=== PATIENT | female | born 1950 | race Caucasian/White ===

== ENCOUNTER 2017-08-05 11:20 | Inpatient (IN) | payer MEDICARE, BC ==
[~2017-08-05] VITALS: Ht 172.7 cm; Wt 82.2 kg
[~2017-08-05 11:20] MED LIST: MULTTAB67 PO; ZOVI5OIN TOPICAL
[2017-08-05 11:29] VITALS: BP 136/66; PULSE 70; RESP 18; TEMP 97.9; O2SAT 97
[2017-08-05] MEDS ORDERED: ONDANSETRON HCL 4 MG/2 ML VIAL IVP ONE ×2 (11:30)
[2017-08-05] MEDS ORDERED: HYDROmorphone HCL PF 1 MG/ML VIAL IVS ONE ×2 (11:30)
[2017-08-05] MEDS ORDERED: SODIUM CHLORIDE 0.9% FLUSH 10 ML FLUSH IVF PRN ×2 (11:30)
--- NOTE | 2017-08-05 11:33 | PD ---
HPI Chief Complaint: Fall Time Seen by Provider: 11:24 Travel History International Travel<30 days: No Contact w/Intl Traveler<30days: No Traveled to known affect area: No History of Present Illness HPI 67-year-old normally healthy female presents the emergency department via EMS status post trip and fall with complaints of right hip pain and shortening. Patient was helping her , who was on the roof, when the patient was walking backwards trying to see on the roof, when she tripped and fell over a curbing causing her accident. Patient was not on the ladder. Patient normally takes no medications and is very healthy and active. Patient states pain in the right hip and proximal thigh. Patient denies numbness or tingling and is able to move right foot without difficulty. She denies hitting her head or loss of consciousness. No neck pain. Patient received 8 mg of morphine en route in the ambulance with some improvement of her pain. Pain is currently 5 out of 10 at rest. Patient has no known drug allergies. Patient last had yogurt at approximately 8:00 this morning. PFSH Past Medical History Cancer: No Cardiovascular Problems: No Diabetes: No Endocrine: No Genitourinary: No Hepatitis: Yes (hep c) Hiatal Hernia: No Immune Disorder: No Musculoskeletal: No Neurologic: No Psychiatric: Yes (depressions) Reproductive: No Respiratory: No Thyroid Disease: No Past Surgical History Endocrine Surgery: No Social History Alcohol Use: No Tobacco Use: No Substance Use: No Allergies-Medications (Allergen,Severity, Reaction): Coded Allergies: No Known Allergies (Unverified , 08/10/16) Reported Meds & Prescriptions Reported Meds & Active Scripts Active Enoxaparin Inj (Enoxaparin Sodium) 40 Mg/0.4 Ml Syr 40 Mg SQ DAILY Start Aspirin after Lovenox is completed. Ecotrin Regular Strength (Aspirin) 325 Mg Tabdr 325 Mg PO DAILY Start Aspirin after Lovenox is completed. [place] (Hydrocodone-Acetaminophen) 5-325 mg Tab 1-2 Tab PO Q4H PRN Reported Aspirin 81 Mg Chew 81 Mg CHEW DAILY Review of Systems Except as stated in HPI: all other systems reviewed are Neg General / Constitutional: No: Fever Eyes: No: Visual changes HENT: No: Headaches Cardiovascular: No: Chest Pain or Discomfort Respiratory: No: Shortness of Breath Gastrointestinal: No: Abdominal Pain Genitourinary: No: Dysuria Musculoskeletal: Positive: Arthralgias, Limited ROM, Pain Skin: No Rash Neurologic: No: Weakness Psychiatric: No: Depression Endocrine: No: Polydipsia Hematologic/Lymphatic: No: Easy Bruising Physical Exam Narrative GENERAL: Patient appears in moderate distress. SKIN: Warm and dry. Normal color. Normal turgor. No abrasion or ecchymosis or open wound. HEAD: Atraumatic. Normocephalic. Nontender. EYES: Pupils equal and round. No scleral icterus. No injection or drainage. ENT: No nasal bleeding or discharge. Mucous membranes pink and moist. Pharynx is clear. Airway is patent. NECK: Trachea midline. No bony tenderness or step-off. Range of motion is full and supple. CARDIOVASCULAR: Regular rate and rhythm. No murmurs gallops or rubs. RESPIRATORY: No accessory muscle use. Clear to auscultation. Breath sounds equal bilaterally. GASTROINTESTINAL: Abdomen soft, non-tender, nondistended. Hepatic and splenic margins not palpable. MUSCULOSKELETAL: Extremities without clubbing, cyanosis, or edema. Right lower extremity is held in external rotation and appears somewhat shortened. Further exam is limited secondary to patient's pain. Capillary refill is less than 2 seconds distally, and patient has normal sensation and motion of the toes in the right foot. NEUROLOGICAL: Awake and alert. No obvious cranial nerve deficits. Motor grossly within normal limits. Normal speech. PSYCHIATRIC: Appropriate mood and affect; insight and judgment normal. Data Data Last Documented VS Vital Signs Date Time Temp Pulse Resp B/P (MAP) Pulse Ox O2 Delivery O2 Flow Rate FiO2 08/05/17 11:40 70 18 97 Room Air 08/05/17 11:40 97.9 136/66 (89) Orders Orders Electrocardiogram (08/05/17 11:29) Complete Blood Count With Diff (08/05/17 11:29) Comprehensive Metabolic Panel (08/05/17 11:29) Prothrombin Time / Inr (Pt) (08/05/17 11:29) Act Partial Throm Time (Ptt) (08/05/17 11:29) Urinalysis - C+S If Indicated (08/05/17 11:29) Type And Screen (08/05/17 11:29) Chest, Single Ap (08/05/17 11:29) Femur (Ap & Lat/2vws) (08/05/17 11:29) Hip, Uni(Ap&Lat) W Ap Pelvis (08/05/17 11:29) Iv Access Insert/Monitor (08/05/17 11:29) Urinary Catheter Insert/Apply (08/05/17 11:29) Oximetry (08/05/17 11:29) Ecg Monitoring (08/05/17 11:29) Ondansetron Inj (Zofran Inj) (08/05/17 11:30) Sodium Chloride 0.9% Flush (Ns Flush) (08/05/17 11:30) Hydromorphone Pf Inj (Dilaudid Pf Inj) (08/05/17 11:30) Admit Order (Ed Use Only) (08/05/17 13:00) Labs Laboratory Tests Test 08/05/17 11:45 08/05/17 12:37 White Blood Count 10.1 TH/MM3 Red Blood Count 4.31 MIL/MM3 Hemoglobin 13.6 GM/DL Hematocrit 40.9 % Mean Corpuscular Volume 94.9 FL Mean Corpuscular Hemoglobin 31.5 PG Mean Corpuscular Hemoglobin Concent 33.2 % Red Cell Distribution Width 12.3 % Platelet Count 189 TH/MM3 Mean Platelet Volume 8.2 FL Neutrophils (%) (Auto) 70.7 % Lymphocytes (%) (Auto) 22.6 % Monocytes (%) (Auto) 5.3 % Eosinophils (%) (Auto) 1.1 % Basophils (%) (Auto) 0.3 % Neutrophils # (Auto) 7.2 TH/MM3 Lymphocytes # (Auto) 2.3 TH/MM3 Monocytes # (Auto) 0.5 TH/MM3 Eosinophils # (Auto) 0.1 TH/MM3 Basophils # (Auto) 0.0 TH/MM3 CBC Comment DIFF FINAL Differential Comment Prothrombin Time 10.9 SEC Prothromb Time International Ratio 1.0 RATIO Activated Partial Thromboplast Time 22.9 SEC Blood Urea Nitrogen 16 MG/DL Creatinine 0.79 MG/DL Random Glucose 146 MG/DL Total Protein 7.6 GM/DL Albumin 3.8 GM/DL Calcium Level 9.1 MG/DL Alkaline Phosphatase 64 U/L Aspartate Amino Transf (AST/SGOT) 21 U/L Alanine Aminotransferase (ALT/SGPT) 22 U/L Total Bilirubin 0.4 MG/DL Sodium Level 139 MEQ/L Potassium Level 3.8 MEQ/L Chloride Level 104 MEQ/L Carbon Dioxide Level 22.1 MEQ/L Anion Gap 13 MEQ/L Estimat Glomerular Filtration Rate 73 ML/MIN Urine Color YELLOW Urine Turbidity CLEAR Urine pH 6.0 Urine Specific [place] 1.016 Urine Protein NEG mg/dL Urine Glucose (UA) NEG mg/dL Urine Ketones 40 mg/dL Urine Occult Blood TRACE Urine Nitrite NEG Urine Bilirubin NEG Urine Urobilinogen LESS THAN 2.0 MG/DL Urine Leukocyte Esterase MOD Urine RBC 3 /hpf Urine WBC 5 /hpf Urine Squamous Epithelial Cells <1 /hpf Urine Mucus FEW /lpf Microscopic Urinalysis Comment CATH-CULT NOT IND MDM Medical Decision Making Medical Screen Exam Complete: Yes Emergency Medical Condition: Yes Differential Diagnosis Trip and fall. Right hip pain. Pelvic fracture. Femur fracture. Hip fracture. Narrative Course Patient is medically stable at time of exam. Chest x-ray, x-rays of the right hip and pelvis, and right femur ordered. Labs ordered including CBC, CMP, PT PTT and INR, type and screen and urinalysis. Drew catheter is ordered. Patient is given 1 mg of hydromorphone IV. Patient given 4 mg Zofran IV. Labs are stable EKG shows normal sinus rhythm without ST changes. Chest x-ray is unremarkable. X-ray shows a right femoral neck fracture of the right hip. Call was placed to the hospitalist for admission. Call also placed to Dr. Borges the orthopedic on-call Patient was discussed with Dr. Borges, who would like the patient admitted for kept nothing by mouth, as he may take her to surgery today. Diagnosis Primary Impression: Closed right hip fracture Qualified Codes: S72.001A - Fracture of unspecified part of neck of right femur, initial encounter for closed fracture Admitting Information Admitting Physician Requests: Admit Scripts Enoxaparin Inj (Enoxaparin Inj) 40 Mg/0.4 Ml Syr 40 MG SQ DAILY for Blood Clot Prevention, #10 SYRINGE 0 Refills Start Aspirin after Lovenox is completed. Prov: Chaim Maynard MD 08/05/[address] (Ecotrin Regular Strength) 325 Mg Tabdr 325 MG PO DAILY for Prevent Blood Clot, #30 TAB 0 Refills Start Aspirin after Lovenox is completed. Prov: Chaim Maynard MD 08/05/17 Hydrocodone-Acetaminophen ([place]) 5-325 mg Tab 1-2 TAB PO Q4H Y for PAIN, #60 TAB 0 Refills Prov: Chaim Maynard MD 08/05/17 Condition: Stable Adelso Steven Aug 05, 2017 11:33
[2017-08-05 11:39] VITALS: PULSE 70; RESP 18; O2SAT 97
[2017-08-05 11:40] VITALS: BP 136/66; PULSE 70; RESP 18; TEMP 97.9; O2SAT 99
[2017-08-05] MEDS ORDERED: ASPI81CH CHEW ×2 (11:44)
[2017-08-05 12:06] LABS: AUTOMATED NEUTROPHIL # 7.2 TH/MM3 (1.8-7.7); BASOPHIL % 0.3 % (0.0-2.0); EOSINOPHIL # 0.1 TH/MM3 (0-0.4); EOSINOPHIL % 1.1 % (0.0-4.0); HEMATOCRIT 40.9 % (35.0-46.0); HEMOGLOBIN 13.6 GM/DL (11.6-15.3); LYMPH % 22.6 % (9.0-44.0); LYMPHOCYTE # 2.3 TH/MM3 (1.0-4.8); MEAN CELL VOLUME 94.9 FL (80.0-100.0); MEAN CORPUSCULAR HEMOGLOBIN 31.5 PG (27.0-34.0); MEAN CORPUSCULAR HGB CONC 33.2 % (32.0-36.0); MEAN PLATELET VOLUME 8.2 FL (7.0-11.0); MONO % 5.3 % (0.0-8.0); MONOCYTE # 0.5 TH/MM3 (0-0.9); NEUT % 70.7 % (16.0-70.0); PLATELET COUNT 189 TH/MM3 (150-450); RED BLOOD COUNT 4.31 MIL/MM3 (4.00-5.30); RED CELL DISTRIBUTION WIDTH 12.3 % (11.6-17.2); WHITE BLOOD COUNT 10.1 TH/MM3 (4.0-11.0)
[2017-08-05 12:13] LABS: PROTHROMBIN TIME - PATIENT 10.9 SEC (9.8-11.6)
--- NOTE | 2017-08-05 12:20 | RADRPT ---
EXAM DATE/TIME: 08/05/2017 11:48 [facility] COMPARISON: No previous studies available for comparison. INDICATIONS : Trauma. Fall today. MEDICAL HISTORY : None. SURGICAL HISTORY : None. ENCOUNTER: Initial ACUITY: 1 day PAIN SCORE: 0/10 LOCATION: Bilateral chest FINDINGS: No significant effusion or pneumothorax. No apical cap. Lungs are clear. Cardiomegaly some contours a re within normal limits. Osseous structures are grossly intact. CONCLUSION: 1. Negative portable chest status post trauma. Gerardo Booker MD on August 05, 2017 at 12:18 Board Certified Radiologist. This report was verified electronically.
--- NOTE | 2017-08-05 12:24 | RADRPT ---
EXAM DATE/TIME: 08/05/2017 11:52 [facility] COMPARISON: No previous studies available for comparison. INDICATIONS : Trauma. Fall today. Pain in right hip and femur. MEDICAL HISTORY : None. SURGICAL HISTORY : None. ENCOUNTER: Initial ACUITY: 1 day PAIN SCORE: 10/10 LOCATION: Right FINDINGS: Slightly comminuted intertrochanteric fracture of the right femur with slight angulation. Remaining s tructures are intact. Serpiginous sclerotic medullary lesion in the distal femur likely reflects a sm all bone infarct. Hip and knee joints are grossly maintained. Soft tissues are grossly unremarkable. CONCLUSION: 1. Mildly comminuted intertrochanteric right femoral fracture. Gerardo Booker MD on August 05, 2017 at 12:20 Board Certified Radiologist. This report was verified electronically.
--- NOTE | 2017-08-05 12:37 | RADRPT ---
EXAM DATE/TIME: 08/05/2017 12:04 [facility] COMPARISON: No previous studies available for comparison. INDICATIONS : Trauma. Fall today. Pain in right hip and femur. MEDICAL HISTORY : None. SURGICAL HISTORY : None. ENCOUNTER: Initial ACUITY: 1 day PAIN SCORE: 10/10 LOCATION: Right pelvis FINDINGS: Mildly comminuted right intertrochanteric fracture. Well marginated 2.7 sclerotic lesion involving th e right ilium near the SI joint. No periosteal reaction. Remaining osseous structures are intact. Kristy nt spaces are maintained. Soft tissues are unremarkable. CONCLUSION: 1. Mildly comminuted right intertrochanteric fracture. 2. 2.8 cm right iliac sclerotic lesion demonstrating features consistent with low biological activity . Further evaluation may be performed with bone scan or MRI exam as warranted. Gerardo Booker MD on August 05, 2017 at 12:29 Board Certified Radiologist. This report was verified electronically.
[2017-08-05 12:41] LABS: ALBUMIN 3.8 GM/DL (3.4-5.0); AST (GOT) 21 U/L (15-37); BICARBONATE 22.1 MEQ/L (21.0-32.0); BLOOD UREA NITROGEN 16 MG/DL (7-18); CALCIUM 9.1 MG/DL (8.5-10.1); CHLORIDE 104 MEQ/L (98-107); CREATININE 0.79 MG/DL (0.50-1.00); GLOMERULAR FILTRATION RATE 73 ML/MIN (>89); GLUCOSE,RANDOM 146 MG/DL (74-106); SODIUM (NA) 139 MEQ/L (136-145)
[2017-08-05 12:42] LABS: ALT (GPT) 22 U/L (10-53)
[2017-08-05 12:45] LABS: ALKALINE PHOSPHATASE 64 U/L (45-117); TOTAL BILIRUBIN ADULT 0.4 MG/DL (0.2-1.0); TOTAL PROTEIN 7.6 GM/DL (6.4-8.2)
[2017-08-05 13:06] LABS: BILIRUBIN, URINE NEG (NEG); BLOOD, URINE TRACE (NEG); GLUCOSE,URINE NEG (NEG); KETONE, URINE 40 mg/dL (NEG); MUCUS URINE FEW /lpf (OCC); NITRITE,URINE NEG (NEG); SQUAMOUS EPITHELIAL CELL URINE <1 /hpf (0-5); URINE COLOR YELLOW (YELLW/STRAW); URINE LEUKOCYTE ESTERASE MOD (NEG)
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
[2017-08-05] MEDS ORDERED: SODIUM CHLORIDE 0.9% FLUSH 10 ML FLUSH IV FLUSH PRN ×2 (14:00)
[2017-08-05] MEDS ORDERED: NALOXONE HCL 0.4 MG/ML AMP IV PUSH PRN ×4 (14:00→17:15)
[2017-08-05] MEDS ORDERED: MAGNESIUM HYDROXIDE SUSP 30 ML CUP PO PRN ×4 (14:00→17:15)
[2017-08-05] MEDS ORDERED: SENNOSIDES 8.6 MG TAB PO PRN ×2 (14:00)
[2017-08-05] MEDS ORDERED: ACETAMINOPHEN/HYDROcodone 325 MG/5 MG TAB PO PRN ×6 (14:00→17:15)
[2017-08-05] MEDS ORDERED: ACETAMINOPHEN 325 MG TAB PO PRN ×2 (14:00)
[2017-08-05] MEDS ORDERED: ACETAMINOPHEN/HYDROcodone 325 MG/7.5 MG TAB PO PRN ×2 (14:00)
[2017-08-05] MEDS ORDERED: LACTULOSE SYRUP 20 GM/30 ML CUP PO PRN ×2 (14:00)
[2017-08-05] MEDS ORDERED: ONDANSETRON HCL 4 MG/2 ML VIAL IVP PRN ×4 (14:00→17:15)
[2017-08-05] MEDS ORDERED: MORPHINE SULFATE 4 MG/ML INJ IV PUSH PRN ×4 (14:00→17:15)
[2017-08-05] MEDS ORDERED: BISACODYL 10 MG SUPP RECTAL PRN ×4 (14:00→17:15)
[2017-08-05 14:25] VITALS: O2SAT 99
[2017-08-05] MEDS: SODIUM CHLOR 0.9% 1000 ML INJ 1,000 ML IV SCH ×6 (14:26→21:42)
[2017-08-05 15:00] VITALS: BP 117/61; PULSE 67; RESP 16; O2SAT 99
[2017-08-05] MEDS ORDERED: ACETAMINOPHEN 1000 MG/100 ML 100 ML IV ONE ×2 (15:09)
[2017-08-05] MEDS ORDERED: GENTAMICIN SULFATE 80 MG/2 ML VIAL ONE ×2 (15:26)
[2017-08-05] MEDS ORDERED: VANCOMYCIN HCL 1000 MG VIAL ONE ×2 (15:27)
[2017-08-05] MEDS ORDERED: ceFAZolin INJ 1,000 MG VIAL ONE ×2 (15:27)
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
--- NOTE | 2017-08-05 17:06 | PD.OP ---
cc: Chaim Maynard MD Operative Report Date of Surgery: Aug 05, 2017 Preoperative Diagnosis: Right hip intertrochanteric fracture Postoperative Diagnosis: Same Procedure: Right hip treatment of intertrochanteric fracture with intramedullary nail Anesthesia: Gen. Surgeon: Chaim Maynard Mortgage Clerk(s): LUIS FERNANDO Cosme The surgical procedure was assisted by my Advanced Registered Nurse Practitioner. My IRONWORKER WIRE FENCE ERECTOR presence was necessary throughout this case for the manipulation and positioning of the surgical extremity. My IRONWORKER WIRE FENCE ERECTOR was assisting me throughout the duration of this procedure. The skill set of an Advance Registered Nurse Practitioner was medically necessary to complete this procedure. During the surgical case, the rn surgical pcu was working at the back table and the Advance Registered Nurse Practitioner was directly assisting me. Operation and Findings: Estimated blood loss: 150 cc Implants: Synthes short trochanteric nail, size: 11, 130 The patient received intravenous vancomycin and Ancef. After the appropriate anesthesia was administered, and the patient was transferred to the fracture table. The fracture was anatomically reduced under fluoroscopic imaging. The hip was prepped and draped in usual sterile fashion. We made incision just proximal to the tip of the greater trochanter. We dissected down through the deep fascia. We used a threaded guidewire at the tip of the greater trochanter which was placed down to the metaphyseal region on both the AP and lateral views. We reamed proximally. Using fluoroscopic analysis we templated the appropriate size for the short nail. This nail was then placed into position under fluoroscopic guidance. We made incision laterally based on the position of the associated jig. We then placed a threaded guidewire into the center, center of the femoral head. The appropriate length for the helical blade was measured. We drilled laterally and then step reamed the femoral neck and femoral head region. The helical blade was placed into position. We then tightened the proximal set screw, which was followed by releasing one turn off of the screw to allow for compression. Traction was released from the leg and then manual compression was performed. There was an excellent endpoint. The nail was secured distally with a single screw off of the jig using fluoroscopic guidance. We took final fluoroscopic imaging which revealed that the fracture was in very good position. The hardware was in good position as well. The wounds were thoroughly irrigated and then closed with a 0 Vicryl followed by 2-0 Vicryl and danuta. The postoperative plan is to start full weightbearing. Additionally, we will initiate postoperative antibiotics for 24 hours along with DVT prophylaxis consisting of early mobilization, SCDs, compression stockings, and Lovenox followed by aspirin. Chaim Maynard MD Aug 05, 2017 17:06
--- NOTE | 2017-08-05 17:06 | PD.OP ---
cc: Chaim Maynard MD Operative Report Date of Surgery: Aug 05, 2017 Preoperative Diagnosis: Right hip intertrochanteric fracture Postoperative Diagnosis: Same Procedure: Right hip treatment of intertrochanteric fracture with intramedullary nail Anesthesia: Gen. Surgeon: Chaim Maynard Spinner Continuous(s): LUIS FERNANDO Cosme The surgical procedure was assisted by my Advanced Registered Nurse Practitioner. My AUTOMOBILE ENGINE ASSEMBLER presence was necessary throughout this case for the manipulation and positioning of the surgical extremity. My AUTOMOBILE ENGINE ASSEMBLER was assisting me throughout the duration of this procedure. The skill set of an Advance Registered Nurse Practitioner was medically necessary to complete this procedure. During the surgical case, the surgical forceps fabricator was working at the back table and the Advance Registered Nurse Practitioner was directly assisting me. Operation and Findings: Estimated blood loss: 150 cc Implants: Synthes short trochanteric nail, size: 11, 130 The patient received intravenous vancomycin and Ancef. After the appropriate anesthesia was administered, and the patient was transferred to the fracture table. The fracture was anatomically reduced under fluoroscopic imaging. The hip was prepped and draped in usual sterile fashion. We made incision just proximal to the tip of the greater trochanter. We dissected down through the deep fascia. We used a threaded guidewire at the tip of the greater trochanter which was placed down to the metaphyseal region on both the AP and lateral views. We reamed proximally. Using fluoroscopic analysis we templated the appropriate size for the short nail. This nail was then placed into position under fluoroscopic guidance. We made incision laterally based on the position of the associated jig. We then placed a threaded guidewire into the center, center of the femoral head. The appropriate length for the helical blade was measured. We drilled laterally and then step reamed the femoral neck and femoral head region. The helical blade was placed into position. We then tightened the proximal set screw, which was followed by releasing one turn off of the screw to allow for compression. Traction was released from the leg and then manual compression was performed. There was an excellent endpoint. The nail was secured distally with a single screw off of the jig using fluoroscopic guidance. We took final fluoroscopic imaging which revealed that the fracture was in very good position. The hardware was in good position as well. The wounds were thoroughly irrigated and then closed with a 0 Vicryl followed by 2-0 Vicryl and danuta. The postoperative plan is to start full weightbearing. Additionally, we will initiate postoperative antibiotics for 24 hours along with DVT prophylaxis consisting of early mobilization, SCDs, compression stockings, and Lovenox followed by aspirin. Chaim Maynard MD Aug 05, 2017 17:06
--- NOTE | 2017-08-05 17:06 | PD.OP ---
cc: Chaim Maynard MD Operative Report Date of Surgery: Aug 05, 2017 Preoperative Diagnosis: Right hip intertrochanteric fracture Postoperative Diagnosis: Same Procedure: Right hip treatment of intertrochanteric fracture with intramedullary nail Anesthesia: Gen. Surgeon: Chaim Maynard Jewel Gauger(s): LUIS FERNANDO Cosme The surgical procedure was assisted by my Advanced Registered Nurse Practitioner. My AIR PURIFIER SERVICER presence was necessary throughout this case for the manipulation and positioning of the surgical extremity. My AIR PURIFIER SERVICER was assisting me throughout the duration of this procedure. The skill set of an Advance Registered Nurse Practitioner was medically necessary to complete this procedure. During the surgical case, the surgical aides teacher was working at the back table and the Advance Registered Nurse Practitioner was directly assisting me. Operation and Findings: Estimated blood loss: 150 cc Implants: Synthes short trochanteric nail, size: 11, 130 The patient received intravenous vancomycin and Ancef. After the appropriate anesthesia was administered, and the patient was transferred to the fracture table. The fracture was anatomically reduced under fluoroscopic imaging. The hip was prepped and draped in usual sterile fashion. We made incision just proximal to the tip of the greater trochanter. We dissected down through the deep fascia. We used a threaded guidewire at the tip of the greater trochanter which was placed down to the metaphyseal region on both the AP and lateral views. We reamed proximally. Using fluoroscopic analysis we templated the appropriate size for the short nail. This nail was then placed into position under fluoroscopic guidance. We made incision laterally based on the position of the associated jig. We then placed a threaded guidewire into the center, center of the femoral head. The appropriate length for the helical blade was measured. We drilled laterally and then step reamed the femoral neck and femoral head region. The helical blade was placed into position. We then tightened the proximal set screw, which was followed by releasing one turn off of the screw to allow for compression. Traction was released from the leg and then manual compression was performed. There was an excellent endpoint. The nail was secured distally with a single screw off of the jig using fluoroscopic guidance. We took final fluoroscopic imaging which revealed that the fracture was in very good position. The hardware was in good position as well. The wounds were thoroughly irrigated and then closed with a 0 Vicryl followed by 2-0 Vicryl and danuta. The postoperative plan is to start full weightbearing. Additionally, we will initiate postoperative antibiotics for 24 hours along with DVT prophylaxis consisting of early mobilization, SCDs, compression stockings, and Lovenox followed by aspirin. Chaim Maynard MD Aug 05, 2017 17:06
[2017-08-05] MEDS ORDERED: ASPI-146 PO ×2 (17:07)
[2017-08-05] MEDS ORDERED: ENOX40IN SQ ×2 (17:07)
[2017-08-05] MEDS ORDERED: NORC5TAB PO ×2 (17:07)
[2017-08-05] MEDS ORDERED: ZOLPIDEM TARTRATE 5 MG TAB PO PRN ×2 (17:15)
[2017-08-05] MEDS ORDERED: Post-op Orders (for Pharmacy) MISC XX ONE ×2 (17:15)
[2017-08-05] MEDS ORDERED: ALUMINUM/MAGNESIUM/SIMETH 30 ML CUP PO PRN ×2 (17:15)
[2017-08-05] MEDS ORDERED: diphenhydrAMINE HCL 50 MG/ML VIAL IV PUSH PRN ×2 (17:15)
[2017-08-05] MEDS ORDERED: SODIUM CHLORIDE 0.9% FLUSH 5 ML FLUSH IVF PRN ×2 (17:15)
[2017-08-05] MEDS ORDERED: *MEPERIDINE 25 MG INJ VIAL PERIprocedural Use ONLY ONE ×2 (17:56)
[2017-08-05] MEDS ORDERED: TRANEXAMIC ACID IV SCH ×4 (18:00)
[2017-08-05] MEDS ORDERED: SODIUM CHLORIDE 0.9% IV SCH ×4 (18:00)
[2017-08-05] MEDS ORDERED: *ONDANSETRON 4 MG VIAL PERIprocedural Use ONLY ONE ×2 (18:01)
[2017-08-05] MEDS ORDERED: DO NOT ADM ANY ANTICOAGULANT DRUGS PRN ×2 (18:30)
[2017-08-05 20:00] VITALS: BP 145/77; PULSE 73; RESP 18; TEMP 96.9; O2SAT 95
[2017-08-05] MEDS: SODIUM CHLORIDE 0.9% FLUSH 5 ML FLUSH IVF SCH ×2 (21:00)
[2017-08-05] MEDS: SODIUM CHLORIDE 0.9% FLUSH 10 ML FLUSH IV FLUSH SCH ×2 (21:22)
--- NOTE | 2017-08-05 21:53 | RADRPT ---
EXAM DATE/TIME: 08/05/2017 16:26 [facility] COMPARISON: HIP RIGHT (AP&LAT 2/3VWS) W AP PELVIS, August 05, 2017, 12:04. INDICATIONS : Hip fracture- ORIF. MEDICAL HISTORY : None. SURGICAL HISTORY : None. ENCOUNTER: Initial ACUITY: 1 day PAIN SCORE: Non-responsive. LOCATION: Right Hip. FINDINGS: 7 spot intraoperative fluoroscopic views of the right femur demonstrate antegrade intramedullary heraclio and femoral neck pin fixation across the trochanteric right proximal femur fracture with excellent al ignment. CONCLUSION: Operative fixation right proximal femur fracture. Rj Baez MD on August 05, 2017 at 21:50 Board Certified Radiologist. This report was verified electronically.
[2017-08-06] VITALS (7 sets, daily range): BP systolic 115–136; BP diastolic 54–68; PULSE 64–76; RESP 17–20; TEMP 97.1–99.7; O2SAT 96–100
[2017-08-06] MEDS: SODIUM CHLOR 0.9% 1000 ML INJ 1,000 ML IV SCH ×8 (03:01→19:55)
[2017-08-06 07:05] LABS: AUTOMATED NEUTROPHIL # 8.2 TH/MM3 (1.8-7.7); BASOPHIL % 0.3 % (0.0-2.0); EOSINOPHIL % 0.1 % (0.0-4.0); HEMATOCRIT 33.6 % (35.0-46.0); HEMOGLOBIN 11.5 GM/DL (11.6-15.3); LYMPH % 15.6 % (9.0-44.0); LYMPHOCYTE # 1.7 TH/MM3 (1.0-4.8); MEAN CELL VOLUME 93.4 FL (80.0-100.0); MEAN CORPUSCULAR HEMOGLOBIN 31.9 PG (27.0-34.0); MEAN CORPUSCULAR HGB CONC 34.2 % (32.0-36.0); MEAN PLATELET VOLUME 7.8 FL (7.0-11.0); MONOCYTE # 0.9 TH/MM3 (0-0.9); PLATELET COUNT 162 TH/MM3 (150-450); RED BLOOD COUNT 3.59 MIL/MM3 (4.00-5.30); RED CELL DISTRIBUTION WIDTH 12.5 % (11.6-17.2); WHITE BLOOD COUNT 10.8 TH/MM3 (4.0-11.0)
[2017-08-06 08:11] LABS: ALBUMIN 3.2 GM/DL (3.4-5.0); ALKALINE PHOSPHATASE 51 U/L (45-117); ALT (GPT) 19 U/L (10-53); AST (GOT) 19 U/L (15-37); BICARBONATE 24.5 MEQ/L (21.0-32.0); BLOOD UREA NITROGEN 9 MG/DL (7-18); CALCIUM 8.2 MG/DL (8.5-10.1); CHLORIDE 106 MEQ/L (98-107); CREATININE 0.57 MG/DL (0.50-1.00); GLOMERULAR FILTRATION RATE 106 ML/MIN (>89); GLUCOSE,RANDOM 107 MG/DL (74-106); SODIUM (NA) 140 MEQ/L (136-145); TOTAL BILIRUBIN ADULT 0.4 MG/DL (0.2-1.0); TOTAL PROTEIN 6.4 GM/DL (6.4-8.2)
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
[2017-08-06] MEDS ORDERED: HYDROmorphone HCL PF 0.5 MG/0.5 ML SYRINGE IV PUSH PRN ×2 (08:45)
[2017-08-06] MEDS ORDERED: oxyCODONE/ACETAMINOPHEN 5 MG/325 MG TAB PO PRN ×2 (08:45)
[2017-08-06] MEDS: SODIUM CHLORIDE 0.9% FLUSH 5 ML FLUSH IVF SCH ×4 (08:47→19:55)
[2017-08-06] MEDS: SODIUM CHLORIDE 0.9% FLUSH 10 ML FLUSH IV FLUSH SCH ×2 (08:47)
--- NOTE | 2017-08-06 11:21 | EKG ---
Date Performed: 08/05/2017 Time Performed: 11:36:30 PTAGE: 67 years EKG: Sinus rhythm POSSIBLE LEFT ATRIAL ENLARGEMENT BORDERLINE LEFT AXIS DEVIATION MODERATE INTRAVENTRICULAR CONDUCTION DELAY Left anterior fascicular block BORDERLINE ECG NO PREVIOUS TRACING DOCTOR: Miguel Vera Interpretating Date/Time 08/06/2017 11:19:46
[2017-08-06] MEDS: DOCUSATE SODIUM 50 MG/SENNA 8.6 MG TAB PO SCH ×4 (11:37→19:55)
[2017-08-06] MEDS: oxyCODONE/ACETAMINOPHEN 10 MG/325 MG TAB PO PRN ×6 (11:37→21:54)
[2017-08-06 13:54] LABS: HEMOGLOBIN A1C 6.1 % (4.3-6.0)
[2017-08-06] MEDS ORDERED: ENOXAPARIN SODIUM 40 MG/0.4 ML SYRINGE SQ SCH ×2 (16:00)
[2017-08-06] MEDS: MULTIVITAMINS/MINERALS THERAPEUTIC TAB PO SCH ×2 (19:55)
[2017-08-06] MEDS ORDERED: DOCUSATE SODIUM 100 MG CAP PO SCH ×2 (21:00)
[2017-08-07 00:38] VITALS: BP 110/57; PULSE 72; RESP 17; TEMP 98.4; O2SAT 96
[2017-08-07] MEDS: oxyCODONE/ACETAMINOPHEN 10 MG/325 MG TAB PO PRN ×6 (05:03→13:39)
[2017-08-07 07:25] LABS: HEMATOCRIT 33.4 % (35.0-46.0); HEMOGLOBIN 11.4 GM/DL (11.6-15.3); MEAN CELL VOLUME 93.7 FL (80.0-100.0); MEAN CORPUSCULAR HGB CONC 34.2 % (32.0-36.0); PLATELET COUNT 156 TH/MM3 (150-450); RED BLOOD COUNT 3.56 MIL/MM3 (4.00-5.30); RED CELL DISTRIBUTION WIDTH 12.7 % (11.6-17.2); WHITE BLOOD COUNT 8.2 TH/MM3 (4.0-11.0)
[2017-08-07 07:40] VITALS: BP 124/70; PULSE 73; RESP 17; TEMP 99.1; O2SAT 94
[2017-08-07] MEDS: MULTIVITAMINS/MINERALS THERAPEUTIC TAB PO SCH ×2 (08:35)
[2017-08-07] MEDS: DOCUSATE SODIUM 50 MG/SENNA 8.6 MG TAB PO SCH ×2 (08:35)
[2017-08-07] MEDS: SODIUM CHLORIDE 0.9% FLUSH 5 ML FLUSH IVF SCH ×2 (08:36)
[2017-08-07] MEDS: SODIUM CHLOR 0.9% 1000 ML INJ 1,000 ML IV SCH ×2 (09:01)
[2017-08-07 12:01] VITALS: BP 126/79; PULSE 77; RESP 17; TEMP 98.2; O2SAT 92
--- NOTE | 2017-08-07 12:14 | HHI.FPPN ---
Subjective Remarks Patient seen and examined at bedside. Pt stated her pain is improved. She did not take her pain medication yesterday before working with PT and was not able to do most of the exercises. No acute events overnight. Pt stated she is having a lot of difficulty moving around due to the hip pain and would prefer to continue to work with PT in rehab for a few days. No other complaints. Objective Vitals Vital Signs Date Time Temp Pulse Resp B/P (MAP) Pulse Ox O2 Delivery O2 Flow Rate FiO2 08/07/17 12:01 98.2 77 17 126/79 (95) 92 08/07/17 07:40 Nasal Cannula 3.00 08/07/17 07:40 99.1 73 17 124/70 (88) 94 08/07/17 00:38 98.4 72 17 110/57 (74) 96 08/06/17 20:36 98.6 76 17 120/61 (80) 96 08/06/17 20:22 Nasal Cannula 3.00 08/06/17 16:00 99.7 69 20 122/58 (79) 98 I/O 08/06/17 08/06/17 08/06/17 08/07/17 08/07/17 08/07/17 07:00 15:00 23:00 07:00 15:00 23:00 Intake Total 1236 ml 240 ml 240 ml Output Total 1050 ml Balance 186 ml 240 ml 240 ml Intake Oral 240 ml 240 ml 240 ml IV Total 996 ml Output Urine Total 1050 ml # Voids 1 1 # Bowel Movements 0 0 Physical Exam GENERAL: This is a well-nourished patient lying comfortably in bed SKIN: No ecchymoses or lesions. HEAD: Atraumatic. Normocephalic. EYES: Pupils equal round and reactive. Extraocular motions intact. ENT: Uvula midline. Airway patent. NECK: Trachea midline. No JVD or lymphadenopathy. Supple, no meningeal signs. CARDIOVASCULAR: Regular rate and rhythm without murmurs, gallops, or rubs. Intact radial and dorsalis pedis pulses. RESPIRATORY: Clear to auscultation. Breath sounds equal bilaterally. GASTROINTESTINAL: Abdomen soft, non-tender, nondistended. MUSCULOSKELETAL: Extremities without clubbing, cyanosis, or edema. NEUROLOGICAL: Awake and alert. Cranial nerves II through XII intact. Motor and sensory grossly within normal limits. 5/5 strength in LE bilaterally. Intact sensation in the lower extremities. Normal speech. Result Diagram: 08/07/17 0631 08/06/17 0636 A/P Assessment and Plan Patient is a 67 y/o F w/hx of osteoporosis presenting with r. intertrochanteric fracture. Patient stable. S/p Right hip treatment of intertrochanteric fx with intramedullary nail Problem List: (1) Closed right hip fracture ICD Codes: S72.001A - Fracture of unspecified part of neck of right femur, initial encounter for closed fracture Status: Acute Plan: Pt with Right intertrochanteric fracture found on xray after sustaining a fall. -s/p Right hip treatment of intertrochanteric fx with intramedullary nail by Dr. Maynard, POD#2 -Pt cleared for discharge by Ortho with asa, lovenox and pain medication -Based on physical therapy assessment, recommendations made for patient to continue PT at rehab center -Patient to continue PT at [facility] (2) Right Iliac Sclerotic lesion Plan: Seen on X-ray Alk noras wnl Pt advised to follow-up bone scan outpatient with her PCP (3) Osteoporosis ICD Codes: M81.0 - Age-related osteoporosis without current pathological fracture Status: Chronic Plan: Home vitamin D and calcium supplementation Con't after D/C (4) Hepatitis C infection ICD Codes: B19.20 - Unspecified viral hepatitis C without hepatic coma Status: Chronic Plan: S/p treatment in the last year Patient of Dr. Acosta Con't following with GI outpatient (5) FEN Plan: Fluids: 130 mls/hr Electrolytes: not indicated Diet: regular DVT prophy: SCDs. GI prophy: not indicated Dispo: Pt accepted in [facility] 08/07 for continual physical therapy. Problem Qualifiers (1) Closed right hip fracture: Qualified Codes: S72.001A - Fracture of unspecified part of neck of right femur , initial encounter for closed fracture (2) Osteoporosis: Qualified Codes: M81.0 - Age-related osteoporosis without current pathological fracture (3) Hepatitis C infection: Qualified Codes: B19.20 - Unspecified viral hepatitis C without hepatic coma Gideon Trujillo MD, R1 Aug 07, 2017 12:14
--- NOTE | 2017-08-07 12:32 | PD.ORT.PN ---
Subjective Post Op Day #: 2 Subjective Remarks Patient is OOB in chair with mild to moderate pain that is controlled with medication. Objective Vitals Vital Signs Date Time Temp Pulse Resp B/P (MAP) Pulse Ox O2 Delivery O2 Flow Rate FiO2 08/07/17 12:01 98.2 77 17 126/79 (95) 92 08/07/17 07:40 Nasal Cannula 3.00 08/07/17 07:40 99.1 73 17 124/70 (88) 94 08/07/17 00:38 98.4 72 17 110/57 (74) 96 08/06/17 20:36 98.6 76 17 120/61 (80) 96 08/06/17 20:22 Nasal Cannula 3.00 08/06/17 16:00 99.7 69 20 122/58 (79) 98 I/O 08/06/17 08/06/17 08/06/17 08/07/17 08/07/17 08/07/17 07:00 15:00 23:00 07:00 15:00 23:00 Intake Total 1236 ml 240 ml 240 ml Output Total 1050 ml Balance 186 ml 240 ml 240 ml Intake Oral 240 ml 240 ml 240 ml IV Total 996 ml Output Urine Total 1050 ml # Voids 1 1 # Bowel Movements 0 0 Result Diagram: 08/07/17 0631 08/06/17 0636 Procedures Right hip treatment of intertrochanteric fracture with intramedullary nail Objective Remarks Patient's dressings are C/D/I. EHL/TA/G intact. 2+ pedal pulse. + SILT. Calf is soft and nontender. Assessment & Plan Ortho Post Op Day #: 2 Problem List: Assessment and Plan POD #2: Right hip treatment of intertrochanteric fracture with intramedullary nail 1. WBAT RLE 2. Lovenox followed by ASA for DVT prophylaxis 3. Ice to the right hip PRN 4. Stable for discharge to SNF when medically cleared. 5. F/U in the office in 1-[address] Maynard or LUIS FERNANDO Garcia. Hermes Kee Aug 07, 2017 12:31
--- NOTE | 2017-08-07 13:50 | HHI.DCPOC ---
Discharge Care Plan Diagnosis: (1) Closed right hip fracture (2) Osteoporosis (3) Right Iliac Sclerotic lesion Goals to Promote Your Health * To prevent worsening of your condition and complications * To maintain your health at the optimal level Directions to Meet Your Goals Follow up with your primary care doctor about incidental finding of small hardening of bone on right hip (likely benign, may want to do repeat X-ray or other imaging study in a few months) Take your medications as prescribed Follow your dietary instruction Follow activity as directed Keep your appointments as scheduled Take your immunizations and boosters as scheduled If your symptoms worsen call your PCP, if no PCP go to Urgent Care Center or Emergency Room Smoking is Dangerous to Your Health. Avoid second hand smoke Call the 24-hour hour crisis hotline for domestic abuse at Jass Harrington MD R2 Aug 07, 2017 1:50 pm
--- NOTE | 2017-08-07 13:50 | HHI.DCPOC ---
Discharge Care Plan Diagnosis: (1) Closed right hip fracture (2) Osteoporosis (3) Right Iliac Sclerotic lesion Goals to Promote Your Health * To prevent worsening of your condition and complications * To maintain your health at the optimal level Directions to Meet Your Goals Follow up with your primary care doctor about incidental finding of small hardening of bone on right hip (likely benign, may want to do repeat X-ray or other imaging study in a few months) Take your medications as prescribed Follow your dietary instruction Follow activity as directed Keep your appointments as scheduled Take your immunizations and boosters as scheduled If your symptoms worsen call your PCP, if no PCP go to Urgent Care Center or Emergency Room Smoking is Dangerous to Your Health. Avoid second hand smoke Call the 24-hour hour crisis hotline for domestic abuse at Jass Harrington MD R2 Aug 07, 2017 1:50 pm
--- NOTE | 2017-08-07 13:50 | HHI.DCPOC ---
Discharge Care Plan Diagnosis: (1) Closed right hip fracture (2) Osteoporosis (3) Right Iliac Sclerotic lesion Goals to Promote Your Health * To prevent worsening of your condition and complications * To maintain your health at the optimal level Directions to Meet Your Goals Follow up with your primary care doctor about incidental finding of small hardening of bone on right hip (likely benign, may want to do repeat X-ray or other imaging study in a few months) Take your medications as prescribed Follow your dietary instruction Follow activity as directed Keep your appointments as scheduled Take your immunizations and boosters as scheduled If your symptoms worsen call your PCP, if no PCP go to Urgent Care Center or Emergency Room Smoking is Dangerous to Your Health. Avoid second hand smoke Call the 24-hour hour crisis hotline for domestic abuse at Jass Harrington MD R2 Aug 07, 2017 1:50 pm
--- NOTE | 2017-08-10 01:28 | HHI.DS ---
Discharge Summary Admission Date Aug 06, 2017 at 10:13 Discharge Date: Aug 07, 2017 Admitting Diagnosis Right Hip Fracture (1) Closed right hip fracture Diagnosis: Principal Plan: Pt with Right intertrochanteric fracture found on xray after sustaining a fall. -s/p Right hip treatment of intertrochanteric fx with intramedullary nail by Dr. Maynard, POD#2 -Pt cleared for discharge by Ortho with asa, lovenox and pain medication -Based on physical therapy assessment, recommendations made for patient to continue PT at rehab center -Patient to continue PT at [facility] ICD Codes: S72.001A - Fracture of unspecified part of neck of right femur, initial encounter for closed fracture Status: Acute (2) Right Iliac Sclerotic lesion Diagnosis: Secondary Plan: Seen on X-ray Alk leanne willis Pt advised to follow-up bone scan outpatient with her PCP (3) Osteoporosis Diagnosis: Secondary Plan: Home vitamin D and calcium supplementation Con't after D/C ICD Codes: M81.0 - Age-related osteoporosis without current pathological fracture Status: Chronic (4) Hepatitis C infection Diagnosis: Secondary Plan: S/p treatment in the last year Patient of Dr. Acosta Con't following with GI outpatient ICD Codes: B19.20 - Unspecified viral hepatitis C without hepatic coma Status: Chronic Brief History Ms Ken is a 67 y/o F presenting w/hip fracture after fall. Patient states that event occurred while was on roof. They both were searching for a leak in enclosed screening porch. She was walking backwards on the ground while watching him on the roof and walked into a landscape timber, falling backwards. Fell on a section fo the timbers on the right hip. [place] immediate pain, waited 15-20 minutes, then realized she wasn't going to be able to get up. Is able to move feet but couldn't move upper legs. No numbness or tingling, head injury, dizziness, loss of balance or gait, seizure hx, no chest pain or shortness of breath. Right now, hip is not too painful, only when moving. 11/11. No other pain. Hx of osteoporosis, diagnosed 10 years ago. Due for DEXA scan soon. Takes calcium and vitamin D supplements. No other hx of falls or head traumas. Follows up with Dr. Hawkins PCP, last visit was a year ago. Has been treated for Hep C by Dr. Acosta. States she contracted it when she was much younger but does not know how. No hx of IV drug use, sharing needles, or blood transfusions. Doing well post op this am except for pain when she moves. She had no pain meds for close to 12 hours but I encouraged her to take pain meds when she needs to move with PT especially. CBC/BMP: 08/07/17 0631 08/06/17 0636 Significant Findings Laboratory Tests Test 08/07/17 06:31 Red Blood Count 3.56 MIL/MM3 (4.00-5.30) Hemoglobin 11.4 GM/DL (11.6-15.3) Hematocrit 33.4 % (35.0-46.0) Imaging Last Impressions Hip and Pelvis X-Ray 08/05/17 1129 Signed Impressions: Service Date/Time: Saturday, August 05, 2017 12:04 - CONCLUSION: 1. Mildly comminuted right intertrochanteric fracture. 2. 2.8 cm right iliac sclerotic lesion demonstrating features consistent with low biological activity. Further evaluation may be performed with bone scan or MRI exam as warranted. Gerardo Booker MD Femur X-Ray 08/05/17 1129 Signed Impressions: Service Date/Time: Saturday, August 05, 2017 11:52 - CONCLUSION: 1. Mildly comminuted intertrochanteric right femoral fracture. Gerardo Booker MD Chest X-Ray 08/05/17 1129 Signed Impressions: Service Date/Time: Saturday, August 05, 2017 11:48 - CONCLUSION: 1. Negative portable chest status post trauma. Gerardo Booker MD Hip X-Ray 08/05/17 0000 Signed Impressions: Service Date/Time: Saturday, August 05, 2017 16:26 - CONCLUSION: Operative fixation right proximal femur fracture. Rj Baez MD PE at Discharge GENERAL: This is a well-nourished patient lying comfortably in bed SKIN: No ecchymoses or lesions. HEAD: Atraumatic. Normocephalic. EYES: Pupils equal round and reactive. Extraocular motions intact. ENT: Uvula midline. Airway patent. NECK: Trachea midline. No JVD or lymphadenopathy. Supple, no meningeal signs. CARDIOVASCULAR: Regular rate and rhythm without murmurs, gallops, or rubs. Intact radial and dorsalis pedis pulses. RESPIRATORY: Clear to auscultation. Breath sounds equal bilaterally. GASTROINTESTINAL: Abdomen soft, non-tender, nondistended. MUSCULOSKELETAL: Extremities without clubbing, cyanosis, or edema. NEUROLOGICAL: Awake and alert. Cranial nerves II through XII intact. Motor and sensory grossly within normal limits. 5/5 strength in LE bilaterally. Intact sensation in the lower extremities. Normal Hospital Course Mrs. Rogers presented to the ED after sustaining a mechanical fall. On XRAY she was found to have a right intertrochanteric fx. Ortho was consulted and surgery was done by Dr. Maynard to place an intramedullary nail. During her hospital course she worked with physical therapy and remained in medically stable condition otherwise. Based on their assessment physical therapy recommended continual inpatient rehab and patient agreed with this recommendation. Patient was discharge to [facility]. Pt advised to f/u with ortho and pcp as out patient. Pt Condition on Discharge: Good Discharge Disposition: Rehab Inpatient Discharge Instructions DIET: Follow Instructions for: As Tolerated, No Restrictions Activities you can perform: Weight Bearing as Gabo Gideon Trujillo MD, R1 Aug 10, 2017 01:27
== END 2017-08-07 14:25 | DRG 482 ==
LOC: NEPC 11:20 → INTOOBSV 13:02 → NEDA 13:02 → N06B 15:17 → OBSVTOIN 08-06 10:13
PROVIDERS: ADMIT Family Medicine; ATTEND Family Medicine
PROC: 0QS606Z Reposition Right Upper Femur with Intramedullary Internal Fixation Device, Open Approach (ICD-10-PCS; principal; 2017-08-05 16:05)
DX: S72.141A Displaced intertrochanteric fracture of right femur, initial encounter for closed fracture (principal); H26.9 Unspecified cataract; M81.0 Age-related osteoporosis without current pathological fracture; Y93.01 Activity, walking, marching and hiking; M89.9 Disorder of bone, unspecified; W01.0XXA Fall on same level from slipping, tripping and stumbling without subsequent striking against object, initial encounter; Y92.017 Garden or yard in single-family (private) house as the place of occurrence of the external cause; Z86.19 Personal history of other infectious and parasitic diseases; Z87.891 Personal history of nicotine dependence
CPT/HCPCS: 51702; 71010; 73502; 73552; 76000; 80053; 81001; 83036; 85025; 85027; 85610; 85730; 86850; 86900; 86901; 93005; 94150; 96374; 96375; G8987-GP; G8988-GP; J0131; J0690; J1170; J1580; J1650; J2175; J2405; J3370; J7030